=== PATIENT | male | born 1980 | race Two or more races ===

== ENCOUNTER → 2020-08-04 | Day surgery (SDC) | payer OTHER ==
[~2020-08-04] MED LIST: COLACE100 MG PO; PERCOCET 5-3251 EACH PO
== END | disposition home or self-care (01) ==
LOC: ADM 07-28 08:45 → CIR.AMB 07:00
PROVIDERS: ATTEND Surgery
DX: K60.1 Chronic anal fissure (principal); Z20.828 Contact with and (suspected) exposure to other viral communicable diseases